=== PATIENT | male | born 1965 | race Caucasian/White ===

== ENCOUNTER 2019-07-29 08:33 | Outpatient (CLI) | payer OTHER ==
[~2019-07-29 08:33] MED LIST: ASPI81TA45 PO; ATOR-2 PO; METO25TA35 PO; NITR0.4T28 SL; PRAS10TA4 PO
== END 2019-07-29 23:59 | disposition home or self-care (01) ==
LOC: CFH 08:33
PROVIDERS: ATTEND Internal Medicine Cardiovascular Disease
DX: I35.8 Other nonrheumatic aortic valve disorders (principal); I21.29 ST elevation (STEMI) myocardial infarction involving other sites; Z98.61 Coronary angioplasty status
CPT/HCPCS: 93306

== ENCOUNTER 2020-01-09 14:51 | Outpatient (CLI) | payer OTHER | END 2020-01-09 23:59 | disposition home or self-care (01) | LOC: CFH 14:51 | PROVIDERS: ATTEND Internal Medicine Cardiovascular Disease | DX: I21.29 ST elevation (STEMI) myocardial infarction involving other sites (principal) | CPT/HCPCS: 93306 ==

== ENCOUNTER 2021-04-13 07:55 | Outpatient (CLI) | payer BC | END 2021-04-13 23:59 | disposition home or self-care (01) | LOC: CFH 07:55 | PROVIDERS: ATTEND Internal Medicine Cardiovascular Disease | DX: I25.9 Chronic ischemic heart disease, unspecified (principal); Z98.61 Coronary angioplasty status | CPT/HCPCS: 78452; 93017; A9502 ==

== ENCOUNTER 2021-04-23 08:22 | Day surgery (SDC) | payer BC ==
[~2021-04-23] VITALS: Ht 182.9 cm; Wt 83.0 kg
[2021-04-23] MEDS ORDERED: FENTANYL PF 100 MCG/2ML ONE (08:48)
[2021-04-23] MEDS ORDERED: LIDOCAINE-MPF 1%, 5ML ONE (08:49)
[2021-04-23] MEDS ORDERED: MIDAZOLAM 1 MG/ML, 2ML ONE (08:49)
[2021-04-23] MEDS ORDERED: HEPARIN 1,000 UNITS/ML, 10ML ONE (08:49)
[2021-04-23] MEDS ORDERED: VERAPAMIL 2.5 MG/ML, 2ML ONE (08:49)
[2021-04-23] MEDS ORDERED: SODIUM CHLORIDE 0.9% 1,000 ML IV ONE (09:00)
[2021-04-23] MEDS ORDERED: CLOP75TA52 PO (09:07)
[2021-04-23] MEDS ORDERED: METO25TA35 PO (09:07)
[2021-04-23 09:09] VITALS: BP 125/85
[2021-04-23 09:17] LABS: BASOPHILS % (AUTO) 1 % (0-1); EOSINOPHILS % (AUTO) 1 % (1-7); LYMPHOCYTES % (AUTO) 32 % (22-44); MEAN CORPUSCULAR HEMOGLOBIN 32.5 pg (27.5-34.5); MEAN CORPUSCULAR HGB CONC 35.1 g/dL (33.2-36.2); MEAN PLATELET VOLUME 8.8 fL (7.4-10.4); MONOCYTES % (AUTO) 8 % (2-9); NEUTROPHILS % (AUTO) 58 % (42-75); PLATELET COUNT 197 x10^3/uL (130-400); RED BLOOD COUNT 5.13 x10^6/uL (4.38-5.82); RED CELL DISTRIBUTION WIDTH 13.1 % (9.4-14.8)
[2021-04-23 09:23] LABS: ANION GAP 7 mmol/L (5-15); CALCIUM 8.8 mg/dL (8.5-10.1); CHLORIDE 106 mmol/L (98-107); CREATININE 0.82 mg/dL (0.7-1.3)
[2021-04-23] MEDS ORDERED: SODIUM CHLORIDE 0.9% 1,000 ML IV SCH (11:00)
== END 2021-04-23 12:11 | disposition home or self-care (01) ==
LOC: CACL 08:22
PROVIDERS: ATTEND Internal Medicine Cardiovascular Disease
DX: R94.39 Abnormal result of other cardiovascular function study (principal); I25.10 Atherosclerotic heart disease of native coronary artery without angina pectoris; I25.2 Old myocardial infarction; E78.5 Hyperlipidemia, unspecified; G47.30 Sleep apnea, unspecified; E66.3 Overweight; Z68.24 Body mass index [BMI] 24.0-24.9, adult; Z79.02 Long term (current) use of antithrombotics/antiplatelets; Z79.82 Long term (current) use of aspirin; Z79.899 Other long term (current) drug therapy; Z88.1 Allergy status to other antibiotic agents; Z95.5 Presence of coronary angioplasty implant and graft
CPT/HCPCS: 36415; 80048; 85025; 93458; 99156; C1769; C1894; J1644; J2250; J3010; Q9967